=== PATIENT | female | born 1965 | race Two or more races ===

== ENCOUNTER 2024-03-01 11:09 | Emergency (ER) | payer OTHER ==
[~2024-03-01] VITALS: Ht 160 cm; Wt 74.5 kg
[2024-03-01 11:25] VITALS: TEMP 98.3
[2024-03-01] MEDS ORDERED: FURO20 PO (11:37)
[2024-03-01] MEDS ORDERED: NITR0.4T50 SL (11:37)
[2024-03-01] MEDS ORDERED: LISI-661 PO (11:37)
[2024-03-01] MEDS ORDERED: HYDR25TA2 PO (11:37)
[2024-03-01] MEDS ORDERED: ASPI81TA87 PO (11:37)
[2024-03-01 11:56] LABS: CALCIUM, TOTAL 9.4 mg/dL (8.8-10.5); CREATININE 1.06 mg/dL (0.60-1.30); POTASSIUM 3.6 mmol/L (3.5-5.1)
[2024-03-01 12:17] LABS: BASOPHILS % (AUTO) 0.8 % (0.0-2.0); EOSINOPHILS % (AUTO) 1.1 % (1.0-6.0); HEMATOCRIT 41.1 % (36-46); HEMOGLOBIN 13.7 g/dL (12.0-16.0); LYMPHOCYTES # (AUTO) 1.5 K/uL (1.0-4.8); MEAN CORPUSCULAR HEMOGLOBIN 30.1 pg (26.0-34.0); MEAN CORPUSCULAR HGB CONC 33.4 G/dL (31.0-37.0); MEAN CORPUSCULAR VOLUME 90 fL (80-100); MONOCYTES # (AUTO) 0.3 K/uL (0.1-1.0); MONOCYTES % (AUTO) 4.7 % (2.0-9.0); NEUTROPHILS # (AUTO) 3.5 K/uL (1.8-7.7); NEUTROPHILS % (AUTO) 65.4 % (40.0-70.0); PLATELET COUNT (AUTO) 281 K/uL (150-450); RED BLOOD CELL COUNT(AUTO) 4.56 MIL/uL (4.00-5.20); RED CELL DISTRIBUTION WIDTH 13.2 % (11.5-14.5); WHITE BLOOD COUNT (AUTO) 5.3 K/uL (4.5-11.0)
[2024-03-01 12:35] LABS: TROPONIN I-HIGH SENSITIVITY 11 ng/L (<51)
[2024-03-01 12:46] VITALS: BP 140/92; PULSE 67; RESP 18
[2024-03-01] MEDS ORDERED: OMEP20 PO (13:06)
== END 2024-03-01 13:49 | disposition home or self-care (01) ==
LOC: EMS 11:09
DX: K21.9 Gastro-esophageal reflux disease without esophagitis (principal); R07.89 Other chest pain
CPT/HCPCS: 71045; 80048; 84484; 85025; 93005; 99285; 36415-L1; 36415-TC

== ENCOUNTER 2024-03-05 21:56 | Emergency (ER) | payer OTHER ==
[~2024-03-05] VITALS: Ht 152.4 cm; Wt 68.2 kg
[~2024-03-05 21:56] MED LIST: ASPI81TA87 PO; FURO20 PO; HYDR25TA2 PO; LISI-661 PO; NITR0.4T50 SL; OMEP20 PO
[2024-03-05 22:09] VITALS: TEMP 98.3
[2024-03-05 22:34] LABS: APPEARANCE,URINE CLEAR (CLEAR); BILIRUBIN,URINE NEGATIVE (NEGATIVE); COLOR,URINE LIGHT YELLOW (YELLOW); GLUCOSE, URINE (UA) NEGATIVE (NEGATIVE); KETONES,URINE NEGATIVE (NEGATIVE); LEUKOCYTE ESTERASE ,URINE NEGATIVE (NEGATIVE); NITRATE,URINE NEGATIVE (NEGATIVE); OCCULT BLOOD,URINE NEGATIVE (NEGATIVE); PH,URINE 5.5 (5.0-8.0); PROTEIN,URINE NEGATIVE (NEGATIVE); SPECIFIC GRAVITIY, URINE 1.025 (1.003-1.030); UROBILINOGEN,URINE <=1.0 mg/dL (<=1.0)
[2024-03-05 23:00] VITALS: BP 127/88; PULSE 118; RESP 24
[2024-03-05 23:16] LABS: BASOPHILS % (AUTO) 0.6 % (0.0-2.0); EOSINOPHILS % (AUTO) 0.4 % (1.0-6.0); HEMATOCRIT 44.9 % (36-46); HEMOGLOBIN 15.3 g/dL (12.0-16.0); LYMPHOCYTES # (AUTO) 1.8 K/uL (1.0-4.8); LYMPHOCYTES % (AUTO) 13.4 % (22.0-44.0); MEAN CORPUSCULAR HEMOGLOBIN 30.3 pg (26.0-34.0); MEAN CORPUSCULAR HGB CONC 34.2 G/dL (31.0-37.0); MEAN CORPUSCULAR VOLUME 89 fL (80-100); MONOCYTES # (AUTO) 0.6 K/uL (0.1-1.0); MONOCYTES % (AUTO) 4.3 % (2.0-9.0); NEUTROPHILS % (AUTO) 81.3 % (40.0-70.0); PLATELET COUNT (AUTO) 332 K/uL (150-450); RED BLOOD CELL COUNT(AUTO) 5.06 MIL/uL (4.00-5.20); RED CELL DISTRIBUTION WIDTH 13.1 % (11.5-14.5); WHITE BLOOD COUNT (AUTO) 13.6 K/uL (4.5-11.0)
[2024-03-05 23:33] LABS: CALCIUM, TOTAL 9.9 mg/dL (8.8-10.5); CREATININE 1.36 mg/dL (0.60-1.30); POTASSIUM 3.3 mmol/L (3.5-5.1)
[2024-03-05] MEDS: ONDANSETRON HCL 4 MG/2 ML VIAL IVP ONE (23:36)
[2024-03-05] MEDS: SODIUM CHLORIDE 0.9% 1,000 ML IV ONE (23:36)
[2024-03-05] MEDS: MORPHINE SULFATE 2 MG/ML SYRINGE IVP ONE (23:37)
[2024-03-05 23:38] LABS: ALBUMIN 4.4 g/dL (3.4-5.0); BILIRUBIN,TOTAL 0.5 mg/dL (0.1-1.0); TOTAL PROTEIN, SERUM 8.1 g/dL (6.4-8.2)
[2024-03-05] MEDS: MAG HYDROX/ALUMINUM HYD/SIMETH 30 ML SUSPENSION UDCUP PO ONE (23:43)
[2024-03-05] MEDS: FAMOTIDINE 20 MG/2 ML VIAL IVP ONE (23:48)
[2024-03-06] MEDS ORDERED: ONDA-104 PO (00:49)
== END 2024-03-06 01:15 | disposition home or self-care (01) ==
LOC: EMS 21:56
DX: R10.13 Epigastric pain (principal); R11.2 Nausea with vomiting, unspecified; I10 Essential (primary) hypertension
CPT/HCPCS: 99285; 96374; 76700; 96375; 96361; 80053; 81003; 83690; 85025; 36415; 93005; J3490; J2270; J2405; J7030

== ENCOUNTER 2024-12-22 13:19 | Inpatient (IN) | payer OTHER ==
[~2024-12-22] VITALS: Ht 154.9 cm; Wt 73.3 kg
[~2024-12-22 13:19] MED LIST changes: -FURO20 PO; +FURO20TA5 PO; +OMEP-148 PO; -OMEP20 PO; +ONDA-104 PO
[2024-12-22] MEDS ORDERED: METO25XL PO (13:39)
[2024-12-22] MEDS ORDERED: FAMO20 PO (13:39)
[2024-12-22] MEDS ORDERED: ISOS30TA92 PO (13:39)
[2024-12-22] MEDS ORDERED: ATOR40TA28 PO (13:39)
[2024-12-22 14:11] LABS: BASOPHILS % (AUTO) 0.8 % (0.0-2.0); EOSINOPHILS % (AUTO) 1.6 % (1.0-6.0); HEMATOCRIT 41.9 % (36-46); LYMPHOCYTES # (AUTO) 1.5 K/uL (1.0-4.8); LYMPHOCYTES % (AUTO) 30.1 % (22.0-44.0); MEAN CORPUSCULAR HEMOGLOBIN 29.9 pg (26.0-34.0); MEAN CORPUSCULAR HGB CONC 33.5 G/dL (31.0-37.0); MEAN CORPUSCULAR VOLUME 89 fL (80-100); MONOCYTES # (AUTO) 0.4 K/uL (0.1-1.0); MONOCYTES % (AUTO) 7.2 % (2.0-9.0); NEUTROPHILS % (AUTO) 60.3 % (40.0-70.0); PLATELET COUNT (AUTO) 284 K/uL (150-450); RED BLOOD CELL COUNT(AUTO) 4.69 MIL/uL (4.00-5.20); RED CELL DISTRIBUTION WIDTH 13.2 % (11.5-14.5)
[2024-12-22 14:19] LABS: ANION GAP 8 mmol/L (8-16); CALCIUM, TOTAL 8.8 mg/dL (8.8-10.5); CARBON DIOXIDE 29 mmol/L (22-29); CHLORIDE 105 mmol/L (98-107); CREATININE 0.94 mg/dL (0.60-1.30); GLOMERULAR FILTR. RATE CALC > 60 mL/min (>60); GLUCOSE,RANDOM 95 mg/dL (70-110); POTASSIUM 3.8 mmol/L (3.5-5.1); SODIUM SERUM 142 mmol/L (136-145); UREA NITROGEN, BLOOD 15 mg/dL (7-18)
[2024-12-22 14:30] LABS: TROPONIN I-HIGH SENSITIVITY 54 ng/L (<51)
[2024-12-22 16:54] LABS: TROPONIN I-HIGH SENSITIVITY 58 ng/L (<51)
[2024-12-22] MEDS: ASPIRIN 325 MG TABLET PO ONE (17:42)
[2024-12-22] MEDS ORDERED: MORPHINE SULFATE 4 MG/ML SYRINGE IVP PRN (21:15)
[2024-12-22] MEDS ORDERED: ONDANSETRON HCL 4 MG/2 ML VIAL IVP PRN (21:15)
[2024-12-22] MEDS: ATORVASTATIN CALCIUM 40 MG TABLET PO ONE (23:04)
[2024-12-22] MEDS: HEPARIN SODIUM,PORCINE 5,000 UNITS/ML VIAL SQ SCH (23:04)
[2024-12-23] VITALS (8 sets, daily range): BP systolic 110–165; BP diastolic 71–88; PULSE 58–84; RESP 16–20; TEMP 97.8–99; O2SAT 93–97
[2024-12-23] MEDS: MELATONIN 3 MG TABLET PO PRN (01:50)
[2024-12-23] MEDS: HydrALAZINE HCL 20 MG/ML VIAL IVP PRN (01:50)
[2024-12-23] MEDS ORDERED: MORPHINE SULFATE 2 MG/ML SYRINGE IVP PRN (04:48)
[2024-12-23 07:05] LABS: ANION GAP 9 mmol/L (8-16); CALCIUM, TOTAL 9.2 mg/dL (8.8-10.5); CARBON DIOXIDE 26 mmol/L (22-29); CHLORIDE 105 mmol/L (98-107); CREATININE 0.84 mg/dL (0.60-1.30); GLOMERULAR FILTR. RATE CALC > 60 mL/min (>60); GLUCOSE,RANDOM 105 mg/dL (70-110); POTASSIUM 3.8 mmol/L (3.5-5.1); SODIUM SERUM 140 mmol/L (136-145); UREA NITROGEN, BLOOD 14 mg/dL (7-18)
[2024-12-23 08:15] LABS: TROPONIN I-HIGH SENSITIVITY 65 ng/L (<51)
[2024-12-23] MEDS: ACETAMINOPHEN 325 MG TABLET PO PRN (09:02)
[2024-12-23] MEDS: ASPIRIN 81 MG CHEWABLE TABLET PO SCH (09:02)
[2024-12-23] MEDS: METOPROLOL SUCCINATE 25 MG ER TABLET PO SCH (09:03)
[2024-12-23] MEDS: DOCUSATE SODIUM 100 MG CAPSULE PO SCH (09:03)
[2024-12-23] MEDS ORDERED: SESTAMIBI TC99M/UD ISOTOPE 1 EA INJ INJ ONE ×2 (10:10→13:30)
[2024-12-23 11:01] LABS: EOSINOPHILS % (AUTO) 0.9 % (1.0-6.0); HEMATOCRIT 42.8 % (36-46); HEMOGLOBIN 14.3 g/dL (12.0-16.0); LYMPHOCYTES # (AUTO) 1.6 K/uL (1.0-4.8); LYMPHOCYTES % (AUTO) 33.1 % (22.0-44.0); MEAN CORPUSCULAR HEMOGLOBIN 29.8 pg (26.0-34.0); MEAN CORPUSCULAR HGB CONC 33.5 G/dL (31.0-37.0); MEAN CORPUSCULAR VOLUME 89 fL (80-100); MONOCYTES # (AUTO) 0.3 K/uL (0.1-1.0); MONOCYTES % (AUTO) 6.5 % (2.0-9.0); NEUTROPHILS # (AUTO) 2.9 K/uL (1.8-7.7); NEUTROPHILS % (AUTO) 58.5 % (40.0-70.0); PLATELET COUNT (AUTO) 279 K/uL (150-450); RED BLOOD CELL COUNT(AUTO) 4.81 MIL/uL (4.00-5.20); RED CELL DISTRIBUTION WIDTH 13.3 % (11.5-14.5)
[2024-12-23] MEDS ORDERED: REGADENOSON 0.4 MG/5 ML PF SYRINGE IVP ONE (12:05)
[2024-12-23] MEDS: REGADENOSON 0.4 MG/5 ML PF SYRINGE IVP ONE ×2 (14:46)
[2024-12-23] MEDS: ATORVASTATIN CALCIUM 40 MG TABLET PO SCH (20:35)
[2024-12-24 01:20] VITALS: BP 144/93; PULSE 84; RESP 17; TEMP 98.4; O2SAT 94
[2024-12-24 06:29] VITALS: BP 126/93; PULSE 63; RESP 18; TEMP 97.6; O2SAT 95
[2024-12-24 06:56] LABS: HEMOGLOBIN A1C 5.6 % (3.8-5.6)
[2024-12-24 07:24] VITALS: BP 143/94; PULSE 62; RESP 19; TEMP 97.9; O2SAT 98
[2024-12-24 07:24] LABS: CHOL/HDL RATIO 2.4 (3.9-5.7)
[2024-12-24 12:00] VITALS: BP 148/90; PULSE 66; RESP 19; TEMP 98; O2SAT 98
== END 2024-12-24 11:40 | disposition home or self-care (01) | DRG 198 ==
LOC: EMS 13:19 → EDH 21:13 → 5N 12-23 00:45
PROVIDERS: ADMIT Internal Medicine; ATTEND Internal Medicine
DX: I25.110 Atherosclerotic heart disease of native coronary artery with unstable angina pectoris (principal); E66.9 Obesity, unspecified; E78.5 Hyperlipidemia, unspecified; I10 Essential (primary) hypertension; R51.9 Headache, unspecified; Z79.899 Other long term (current) drug therapy; Z68.30 Body mass index [BMI] 30.0-30.9, adult; Z78.0 Asymptomatic menopausal state
CPT/HCPCS: 71045; 78452; 80048; 80061; 83036; 83735; 83880; 84484; 85025; 93005; 93306; 99285; A9500; G0378; J0360; J1644; J2785; 36415-L1; 36415-TC